=== PATIENT | male | born 1965 | race Two or more races ===

== ENCOUNTER → 2020-11-07 12:16 | Outpatient (CLI) | payer OTHER | END | disposition home or self-care (01) | LOC: PPH VACUNA 12:16 | DX: Z23 Encounter for immunization (principal) ==

== ENCOUNTER → 2020-11-10 12:25 | Outpatient (CLI) | payer OTHER | END | disposition home or self-care (01) | LOC: LAB 07:47 | PROVIDERS: ATTEND Emergency Medicine Pediatric Emergency Medicine | DX: Z03.818 Encounter for observation for suspected exposure to other biological agents ruled out (principal) ==

== ENCOUNTER 2022-06-14 07:43 | Outpatient (CLI) | payer OTHER | END 2022-06-14 08:10 | disposition home or self-care (01) | LOC: TOM 07:43 | PROVIDERS: ATTEND Internal Medicine Gastroenterology | DX: R10.11 Right upper quadrant pain (principal) ==

== ENCOUNTER 2025-04-09 00:01 | Emergency (ER) | payer OTHER ==
[~2025-04-09] VITALS: Ht 190.5 cm; Wt 93.9 kg
[2025-04-09] MEDS ORDERED: TOPROL XL25 M1 (00:23)
[2025-04-09] MEDS ORDERED: CITALOPRAM HBR30 MG (00:23)
[2025-04-09] MEDS ORDERED: PROSCAR5 MG (00:24)
[2025-04-09] MEDS ORDERED: HYOSCYAMINE SULFATE 0.125 MG TAB.SUBL SL STA (03:08)
[2025-04-09] MEDS ORDERED: MINERAL OIL 30 ML BLIST.PACK PO STA (03:10)
[2025-04-09] MEDS ORDERED: LACTULOSE 20 G/30 ML BLIST.PACK PO STA (03:10)
[2025-04-09] MEDS ORDERED: MAGNESIUM HYDROXIDE 400 MG/5 ML ML PO STA (03:11)
[2025-04-09] MEDS ORDERED: MINERAL OIL 30 ML BLIST.PACK ONE (03:13)
[2025-04-09] MEDS ORDERED: HYOSCYAMINE SULFATE 0.125 MG TAB.SUBL ONE (03:13)
[2025-04-09] MEDS ORDERED: LACTULOSE 20 G/30 ML BLIST.PACK ONE (03:13)
[2025-04-09] MEDS ORDERED: MAGNESIUM HYDROXIDE 30 ML BLIST.PACK PO ONE (03:13)
[2025-04-09 03:58] LABS: BASO % 0.5 % (0.1-1.2); EOS # 0.40 (0.04-0.54); EOS % 2.7 % (0.7-7.0); LYMPH # 1.97 (1.18-3.74); LYMPH % 13.1 % (19.3-53.1); MEAN PLATELET VOLUME 10.40 fl (9.4-12.4); MONO # 0.82 (0.24-0.82); MONO % 5.4 % (4.7-12.5); NEUT # 11.75 (1.56-6.13); NEUT % 77.8 % (34.0-71.1); RED CELL DISTRIBUTION WIDTH 12.7 % (11.6-14.4)
[2025-04-09 04:00] LABS: ERYTHROCYTE SEDIMENTATION RATE 23 mm/hr (0-20)
[2025-04-09 04:29] LABS: ALT/SGPT 31.0 U/L (12-78); AST/SGOT 22.0 U/L (15-37); BILIRUBIN TOTAL 0.36 mg/dL (0.3-1.2); BUN CREA RATIO 19.0 (7.0-25.0); CREATININE SERUM 1.18 mg/dL (0.70-1.30); GFR 63.63; GLOBULINA 4.1 G/DL (2.4-3.5); GLUCOSE FASTING 125.0 mg/dL (65-100); OSMOLALITY SERUM 290.0 MOSM/KG (275-295)
== END 2025-04-09 06:37 | disposition home or self-care (01) ==
LOC: ER 00:01
DX: K59.01 Slow transit constipation (principal); R10.9 Unspecified abdominal pain; Z91.013 Allergy to seafood; K57.30 Diverticulosis of large intestine without perforation or abscess without bleeding